=== PATIENT | female | born 1995 | race Caucasian/White ===

== ENCOUNTER 2019-11-23 12:31 | Emergency (ER) | payer MEDICARE, MEDICAID ==
--- NOTE | 2019-11-23 14:22 | ED ---
Neurological HPI - HPI Summary HPI Summary: Patient is a 24 y/o F presenting to the ED via EMS for a chief complaint of seizure that occurred around 12:00 on 11/23/19. Patient is present with her mother who is speaking for the patient, as the patient is nonverbal. Patient's mother reports she was making breakfast for the patient when the patient had a seizure. About 2 minutes after the seizure, patient walked to the bathroom. Patient had a hot sensation prior to the seizure. No other seizures after the initial seizure are reported. Currently, fatigue and abdominal pain are reported. Patient also endorses having an episode of dark stool. Patient denies changes in appetite, headache, urinary burning, dysuria, or vomiting. Prior to this seizure, patient last had a seizure 10 years ago. Patient was asymptomatic prior to 11/23/19. PMHx is significant for cortical dysplasia, thyroid problem, and seizure disorder. Patient takes Carbatrol and Zonisamide for seizures and denies missing any dosages. She also takes iron supplements. PSHx is significant for adenoidectomy. Paty Tran NP prescribes her medications, but patient was previously seen at [facility]. Patient has an appointment with a neurologist in [place] in December 2019. She has not followed up with a neurologist in several years. LNMP was on 11/17/19. - History of Current Complaint Chief Complaint: EDSeizure Stated Complaint: SEIZURE Time Seen by Provider: 11/23/19 14:03 Hx Obtained From: Patient Onset/Duration: Sudden Onset, Resolved Timing: Sudden Onset Onset Severity: Moderate Current Severity: Moderate Seizure Severity: Moderate Number of Seizures: 1 Pain Intensity: 0 Pain Scale Used: 0-10 Numeric Seizure Character: Generalized Aggravating: Nothing Alleviating: Spontanious Resolution Associated Signs and Symptoms: Positive: Seizure. Negative: Headache, Nausea/ Vomiting Related Hx: Medication Comliant, Seizure - Allergy/Home Medications Allergies/Adverse Reactions: Allergies Allergy/AdvReac Type Severity Reaction Status Date / Time No Known Allergies Allergy Verified 11/23/19 16:14 PMH/Surg Hx/FS Hx/Imm Hx Previously Healthy: Yes Endocrine/Hematology History: Reports: Hx Thyroid Disease Sensory History: Denies: Hx Legally Blind, Hx Deafness Opthamlomology History: Denies: Hx Legally Blind EENT History: Denies: Hx Deafness Neurological History: Reports: Hx Seizures, Other Neuro Impairments/Disorders - Cortical dysplasia - Surgical History Surgical History: Yes Surgery Procedure, Year, and Place: Adenoids Infectious Disease History: No Infectious Disease History: Denies: Traveled Outside the [place] in Last 30 Days - Family History Known Family History: Negative: Cardiac Disease, Hypertension, Diabetes, Renal Disease - Social History Occupation: Unemployed Lives: With Family Alcohol Use: None Hx Substance Use: No Substance Use Type: Reports: None Hx Tobacco Use: No Smoking Status (MU): Never Smoked Tobacco Review of Systems Positive: Fatigue. Negative: Other - Negative changes in appetite Positive: Abdominal Pain, Other - Positive dark stool. Negative: Vomiting Negative: burning - Urinary, dysuria Neurological/Mental Status: Other - Positive seizure Negative: Headache All Other Systems Reviewed And Are Negative: Yes Physical Exam - Summary Physical Exam Summary: Constitutional: Well-developed, Well-nourished, Alert. (-) Distressed Skin: Warm, Dry HENT: Normocephalic; Atraumatic Eyes: Conjunctiva normal, EOMI Neck: Musculoskeletal ROM normal neck. (-) JVD, (-) Stridor, (-) Tracheal deviation Cardio: Rhythm regular, rate normal, Heart sounds normal; Intact distal pulses; The pedal pulses are 2+ and symmetric. Radial pulses are 2+ and symmetric. Pulmonary/Chest wall: Effort normal. (-) Respiratory distress, (-) Wheezes, (-) Rales Abd: Soft, (-) tenderness, (-) Distension, (-) Guarding, (-) Rebound Musculoskeletal: (-) Edema Neuro: Alert, Oriented x3. No focal deficits, nonverbal. Psych: Mood and affect Normal Triage Information Reviewed: Yes Vital Signs On Initial Exam: Initial Vitals Temp Pulse Resp BP Pulse Ox 98.2 F 70 16 118/71 100 11/23/19 12:55 11/23/19 12:55 11/23/19 12:55 11/23/19 12:55 11/23/19 12:55 Vital Signs Reviewed: Yes Procedures - Sedation Patient Received Moderate/Deep Sedation with Procedure: No Diagnostics - Vital Signs Vital Signs Temp Pulse Resp BP Pulse Ox 11/23/19 12:55 98.2 F 70 16 118/71 100 - Laboratory Result Diagrams: 11/23/19 15:36 11/23/19 15:36 Lab Statement: Any lab studies that have been ordered have been reviewed, and results considered in the medical decision making process. Re-Evaluation - Re-Evaluation First Eval Re-Evaluation Time: 15:40 Change: Unchanged Comment: At 15:40, patients mother states patient has established care with Paty Tran NP who gave the patient a referral to Dr. Bob De La Garza for an appointment on 12/28/19. I will call his office to see if an earlier appointment can be made. Course/Dx - Course Course Of Treatment: Patient is a 24 y/o F presenting to the ED via EMS for a chief complaint of seizure that occurred around 12:00 on 11/23/19. Patient's mother reports she was making breakfast for the patient when the patient had a seizure. About 2 minutes after the seizure, patient walked to the bathroom. Currently, fatigue and abdominal pain are reported. Patient also endorses having an episode of dark stool. Patient denies changes in appetite, headache, urinary burning, dysuria, or vomiting. Prior to this seizure, patient last had a seizure 10 years ago. PMHx is significant for cortical dysplasia, thyroid problem, and seizure disorder. Patient takes Carbatrol and Zonisamide for seizures and denies missing any dosages. She also takes iron supplements. PSHx is significant for adenoidectomy. She has not followed up with a neurologist in several years. On exam, normal conjunctiva, EOMI, no focal deficits, patient is nonverbal. All other abnormal lab results are not pertinent to current cc. At 15:40, patients mother states patient has established care with Paty Tran NP who gave the patient a referral to Dr. Bob De La Garza for an appointment on 12/28/19. I will call his office to see if an earlier appointment can be made. At 15:57, Dr. Patel Edwards will see the patient in the ED. At 16:58, Dr. Patel Edwards does not believe the patients story sounds like an epileptic seizure as patient was only unconscious for 2 seconds. He recommends an increase in Zonisamide of 200 mg at night if another seizure occurs. He recommends a follow up during her regular appointment. Patient will be discharged with a diagnosis of epilepsy. Follow up with neurology during scheduled appointment. - Diagnoses Provider Diagnoses: Epilepsy - Physician Notifications Discussed Care Of Patient With: Patel Edwards - At 15:57, Dr. Patel Edwards will see the patient in the ED. At 16:58, Dr. Patel Edwards does not believe the patients story sounds like an epileptic seizure as patient was only unconscious for 2 seconds. He recommends an increase in Zonisamide of 200 mg at night if another seizure occurs. He recommends a follow up during her regular appointment. Time Discussed With Above Provider: 15:57 Instructed by Provider To: MD Will See In ED Discharge ED - Sign-Out/Discharge Documenting (check all that apply): Patient Departure - Discharge - Discharge Plan Condition: Stable Disposition: HOME Patient Education Materials: Epilepsy (ED) Referrals: Paty Tran NP [Primary Care Provider] - Additional Instructions: RETURN TO THE EMERGENCY DEPARTMENT FOR CHANGING OR WORSENING SYMPTOMS. Follow up with your primary care physician in 2-3 days. - Billing Disposition and Condition Condition: STABLE Disposition: Home - Attestation Statements Document Initiated by Scribe: Yes Documenting Scribe: Ayesha Alvarado Provider For Whom Nayana is Documenting (Include Credential): Dominick Zapien MD Scribe Attestation: Ayesha Mario, scribed for Dominick Zapien MD on 11/23/19 at 1858. Scribe Documentation Reviewed: Yes Provider Attestation: The documentation as recorded by the Ayesha pacheco accurately reflects the service I personally performed and the decisions made by me, Dominick Zapien MD Status of Scribe Document: Viewed
[2019-11-23 15:43] LABS: ABS Eosinophils 0.2 10^3/ul (0-0.6); ABS Monocytes 0.4 10^3/ul (0-0.8); ABS Neutrophils 6.8 10^3/ul (1.5-7.7); Eosinophil % 2.4 %; Hematocrit 38 % (35-47); Hemoglobin 13.1 g/dL (12.0-16.0); Lymphocyte % 12.3 %; Mean Corpuscular HGB Conc 34 g/dL (31-36); Mean Corpuscular Hemoglobin 33 pg (27-31); Mean Corpuscular Volume 95 fL (80-97); Mean Platelet Volume 9.2 fL (7.4-10.4); Platelet Count 163 10^3/uL (150-450); Red Blood Count 4.05 10^6 /uL (3.70-4.87); Red Cell Distribution Width 13 % (10-15); White Blood Count 8.5 10^3/uL (3.5-10.8)
[2019-11-23 16:16] LABS: BUN/Creatinine Ratio 15.4 (8-20); Calcium 8.8 mg/dL (8.6-10.3); EGFR African American 136.7 (>60); Potassium 3.8 mmol/L (3.5-5.0)
[2019-11-23 17:04] VITALS: BP 105/72
--- NOTE | 2019-11-23 19:33 | CONS ---
NEUROLOGY CONSULTATION NOTE: DATE OF CONSULT: 11/23/19 CONSULTING PROVIDER: Dr. Dominick Zapien. REASON FOR CONSULT: Seizure activity. CHIEF COMPLAINT: Lost consciousness, passed out. SOURCE OF INFORMATION: The history was mostly obtained from Ms. Richards's mother who is at bedside as Ms. Richards is aphasic at baseline. HISTORY OF PRESENT ILLNESS: The patient is a pleasant 24-year-old female who has history of cortical dysplasia and localization-related epilepsy since childhood. Her last seizure was 10 years ago. She used to see a neurologist in [place], but recently moved to the [facility] 2 years ago and has not established care with a neurologist. She was initially only on Carbatrol 200 mg a day, but was added on zonisamide 3 years ago due to an abnormal EEG. She again has not had any clinical seizures. At baseline, she is functional and is able to ambulate. She is very pleasant and understands very well. The patient has severe Broca's aphasia and tries to mumble a few words into the history. Today, the patient was in normal state of health. She woke up at approximately 10:30 to 11 o'clock. She got up and went to the living room where she was waiting for her mother to make her some breakfast. Her mother was making her some eggs and staton. The patient got up suddenly and then fell to the floor. She recalls falling. She actually had outstretch of the hands and arms on both sides so she does not hit her head. She did not have any head injury. She does think she lost consciousness, but only for [address] Zapien that she passed out for 2 minutes. She did not have any seizure-like activity. She had no tongue biting and no incontinence. She did feel extremely hot and dizzy preceding the fall. She got up and was immediately back to her normal self without any deficits. Her mother does not think she had a seizure, but the patient thinks that she may have had a seizure. She denied any weakness. She has no headaches, visual disturbance, tinnitus, hearing loss , or double vision. The patient was able to actually get up out of the stretcher right now and demonstrate how she fell. She has never had any similar symptoms in the past. I have checked her orthostatic vitals and it was within normal range. Her blood pressure has been on the lower side of normal with systolic blood pressure ranging in the low 100s. The patient has been compliant to both zonisamide and Carbatrol. SEIZURE RISK FACTORS: cortical dysplasia. She has no history of meningitis or encephalitis. She denied any head injury or concussions in the past. She has no history of spinal cord or brain surgeries. PAST MEDICAL HISTORY: Cortical dysplasia, localization-related epilepsy, aphasia, mild developmental delay, no dentures. MEDICATIONS: 1. Zonisamide 100 mg twice daily. 2. Carbatrol 200 mg a day. ALLERGIES: No known drug allergies. FAMILY HISTORY: No family history of stroke or seizures. SOCIAL HISTORY: The patient lives with her mother. Her mother is on SSI. The patient consumes 4 to 5 cups of coffee a day. REVIEW OF SYSTEMS: A 14-point review of systems was obtained and otherwise negative except for what was mentioned in the HPI. The patient was able to nod no to all review of systems. PHYSICAL EXAM: Vitals: Temperature of 98.7, pulse of 82, respiratory rate of 16, oxygen saturation of 98%, and blood pressure of 105/72. General: Well- nourished, well-developed, very pleasant female, in no acute distress. Head: Atraumatic, normocephalic without any obvious abnormality. Neck is supple and symmetrical without any carotid bruits. Eyes: Conjunctivae/corneas are clear. Cardiovascular: Regular rate and rhythm with normal S1, S2. Pulmonary: Clear to auscultation bilaterally with no wheezing or rhonchi. Extremities: Normal range of motion. Psych: Broad affect, normal mood. Neurological Examination: Mental Status: The patient is awake, alert, and oriented to person, place, and time. She is able to write, but unable to speak. She has Broca aphasia. This is her baseline. Cranial Nerves: Pupils are equal, round, and reactive to light. Extraocular muscles are intact. There is no facial asymmetry. Tongue is symmetrical and midline with no atrophy or fasciculation. Motor Examination: 5/5 strength in the upper and lower extremities bilaterally. Sensation is intact to light touch and pinprick throughout. Coordination: Normal [id number] and heel- to-kim testing. Reflexes 2+ throughout the upper and lower extremities. Gait: Normal stance and gait. No ataxia. LABORATORY DATA: WBC 8.5, hemoglobin of 13.1, hematocrit of 38, platelet count of 163. Sodium of 139, potassium 3.8, BUN of 10, calcium of 8.8, magnesium of 2.0. ASSESSMENT AND RECOMMENDATIONS: Ms. Gina Richards is a 24-year-old female who has a history of cortical dysplasia and localization-related epilepsy with last seizure being 10 years ago, who had an episode of what I suspect to be syncope. The patient was in normal state of health and she got up from a seated position, felt hot, dizzy and collapsed. There was no reported seizure-like activity. There were no symptoms of incontinence. She has not had any similar symptoms in the past. She has felt fine since she presented and did not have any postictal confusion. Therefore, I do not recommend any further adjustments to her antiseizure medications. However, I did inform her mother that if she develops any seizure- like activity to go ahead and increase zonisamide to 100 mg in the morning and 200 mg at night. She should continue taking Carbatrol 200 mg daily. I will have her follow up with one of our excellent neurologists at [facility] within 6 to 8 weeks. She should probably get an EEG and consider weaning off one of her AEDs if her EEG is not active. I encouraged the patient to minimize her caffeine intake as she drinks about 4 to 5 cups of coffee a day. She also has not had a meal all morning before her episode of syncope and therefore that could be a triggering factor. I have answered all the patient and her mother's questions. I do not have any further recommendations. I discussed the case with Dr. Zapien at bedside. [id number]/[facility] #: [id number] YESSI
== END 2019-11-23 17:14 | disposition home or self-care (01) ==
LOC: ED 12:31
DX: G40.909 Epilepsy, unspecified, not intractable, without status epilepticus (principal); R53.83 Other fatigue; R10.9 Unspecified abdominal pain
CPT/HCPCS: 36415; 80048; 83735; 85025; 99282